=== PATIENT | female | born 1945 | race Caucasian/White ===

== ENCOUNTER → 2017-02-02 | Outpatient (CLI) | payer MEDICARE | END | disposition home or self-care (01) | LOC: GMAM 14:57 | PROVIDERS: ATTEND Family Medicine | DX: I10 Essential (primary) hypertension (principal); R79.9 Abnormal finding of blood chemistry, unspecified ==

== ENCOUNTER → 2017-08-17 | Outpatient (CLI) | payer MEDICARE | END | disposition home or self-care (01) | LOC: GMAM 14:14 | PROVIDERS: ATTEND Family Medicine | DX: N39.0 Urinary tract infection, site not specified (principal) ==

== ENCOUNTER 2017-12-19 10:48 | Emergency (ER) | payer MEDICARE ==
--- NOTE | 2017-12-19 12:30 | ED.PDOC ---
History of Present Illness - General Chief Complaint: Respiratory Problem Stated Complaint: Difficulty breathing since new medication initiate Time Seen by Provider: 12/19/17 12:24 Exam Limitations: no limitations Additional Information: Zane Key 72 y/o female stated that she had been having SOB since starting her new medication Cilastozal.She has history of COPD and on MDI. Denies chest pains. - History of Present Illness Timing/Duration: yesterday Cough Quality/Degree: dry cough, other - chronic-copd Possible Cause: occasional episodes Improving Factors: nothing Worsening Factors: nothing Associated Symptoms: denies symptoms Respiratory Risk Factors: other - smoking Allergies/Adverse Reactions: Allergies Codeine Adverse Reaction (Verified 12/19/17 11:13) Home Medications: Ambulatory Orders Amiodarone HCl 100 mg PO DAILY 12/19/17 Aspirin [Aspirin Adult Low Dose] 81 mg PO DAILY 12/19/17 Cilostazol 50 mg PO BID 12/19/17 Clopidogrel Bisulfate 75 mg PO DAILY 12/19/17 Lisinopril 20 mg PO DAILY 12/19/17 Tiotropium [place] Monohydrate [Spiriva Handihaler] 2 puff IN DAILY 12/19/17 Review of Systems - Review of Systems Constitutional: States: no symptoms reported EENTM: States: no symptoms reported Respiratory: States: see HPI Cardiology: States: no symptoms reported Gastrointestinal/Abdominal: States: no symptoms reported Genitourinary: States: no symptoms reported Musculoskeletal: States: no symptoms reported All other Systems: Reviewed and Negative, No Change from Baseline Past Medical History (General) - Patient Medical History Hx of COPD: Yes Hx Cardiac Disorders: Yes - a.fib Hx Hypertension: Yes Surgical History: appendectomy, other - - Social History Hx Tobacco Use: Yes Years Tobacco Use: 50 Cigarettes Packs Per Day: 20 Hx Physical Abuse: No Hx Emotional Abuse: No - Activities of Daily Living Patient Lives Alone: No Grooming Ability: Independent Eating (Feeding) Ability: Independent Toileting Ability: Independent Family Medical History - Family History Mother Hx Cardiac Disease: Yes - a.fib-multiple family members Grandparents Family History: Unknown Physical Exam - Physical Exam General Appearance: Alert, Comfortable, No apparent distress Eye Exam: bilateral normal ENT Exam: normal ENT inspection, hearing grossly normal Neck: non-tender, full range of motion, supple Respiratory: chest non-tender, no respiratory distress, decreased breath sounds Cardiovascular/Chest: normal peripheral pulses, no gallop, irregularly irregular Gastrointestinal/Abdominal: normal bowel sounds, non tender, soft, no organomegaly Extremity: normal range of motion, non-tender, no calf tenderness Neurologic: alert, oriented x 3 Skin Exam: normal color, warm/dry Lymphatic: no adenopathy Progress - Progress Progress: 12/19/17 14:28 Vital Signs - 8 hr 12/19/17 12:33 Temperature 97.4 F L Pulse Rate [R 88 Arm] Respiratory 18 Rate Blood Pressure 128/71 [R Arm] O2 Sat by Pulse 94 L Oximetry - EKG/XRAY/CT XRAY: chest - no acute abnormalities Departure - Departure Clinical Impression: SOB (shortness of breath) Time of Disposition: 14:29 Disposition: Discharge to Home or Self Care Condition: Fair Departure Forms: ED Discharge - Pt. Copy, Patient Portal Self Enrollment Referrals: Mani Hernadez MD [Primary Care Provider] - 1-2 Weeks Home Medications: Ambulatory Orders Amiodarone HCl 100 mg PO DAILY 12/19/17 Aspirin [Aspirin Adult Low Dose] 81 mg PO DAILY 12/19/17 Cilostazol 50 mg PO BID 12/19/17 Clopidogrel Bisulfate 75 mg PO DAILY 12/19/17 Lisinopril 20 mg PO DAILY 12/19/17 Tiotropium [place] Monohydrate [Spiriva Handihaler] 2 puff IN DAILY 12/19/17 Additional Instructions: DISCONTINUE CILOZTASOL;Call up your MD ;Return to emergency room as needed; Continue with rest of home medications
--- NOTE | 2017-12-19 14:25 | RAD ---
EXAM: Chest,1 View CLINICAL INDICATION: 72-year-old female with shortness of breath. TECHNIQUE: Single view, AP portable chest was obtained. COMPARISON: None. FINDINGS: Unremarkable cardiac and mediastinal silhouette. Heart size is normal. Tortuous atherosclerotic thoracic aorta. Lungs are clear without focal opacity, pneumothorax or pleural effusions. The visualized bones reveal diffuse demineralization and degenerative change. IMPRESSION: No acute cardiopulmonary abnormalities. Electronically signed by: Angeles Avalos MD 12/19/2017 2:24 PM [facility]
[2017-12-19 15:14] VITALS: BP 142/68; TEMP 97.8; O2SAT 94
== END 2017-12-19 14:30 | disposition home or self-care (01) ==
LOC: ER 10:48
DX: R06.02 Shortness of breath (principal); I48.91 Unspecified atrial fibrillation; I10 Essential (primary) hypertension; Z87.891 Personal history of nicotine dependence; J44.9 Chronic obstructive pulmonary disease, unspecified

== ENCOUNTER → 2018-02-18 | Outpatient (CLI) | payer MEDICARE | LOC: GMAM 16:30 | PROVIDERS: ATTEND Family Medicine | DX: D64.9 Anemia, unspecified (principal) ==

== ENCOUNTER → 2018-08-31 | Outpatient (CLI) | payer MEDICARE | LOC: GMAM 10:40 | PROVIDERS: ATTEND Family Medicine | DX: E03.9 Hypothyroidism, unspecified (principal) ==

== ENCOUNTER 2018-09-25 19:37 | Emergency (ER) | payer MEDICARE ==
[2018-09-25] MEDS ORDERED: VECURONIUM BROMIDE 10 MG VIAL IV ONE (19:38)
[2018-09-25] MEDS ORDERED: WATER FOR INJ 10 ML VIAL INJ ONE (19:38)
[2018-09-25] MEDS ORDERED: ETOMIDATE INJECTION 2 MG/ML 20ML VIAL IV ONE (19:38)
[2018-09-25] MEDS ORDERED: MIDAZOLAM INJ 5 MG/5 ML VIAL IV ONE ×3 (19:38→21:00)
[2018-09-25] MEDS ORDERED: SODIUM CHLORIDE 0.9% (FLUSH) 10 ML SYG IV PRN (19:52)
[2018-09-25] MEDS ORDERED: DOPamine PREMIX 250 ML IVPB ONE (20:05)
[2018-09-25] MEDS ORDERED: LEVALBUTEROL NEBS 1.25 MG/3 ML VIAL NEB ONE (20:09)
[2018-09-25 20:13] VITALS: O2SAT 94
[2018-09-25] MEDS ORDERED: SUCCINYLCHOLINE CHLORIDE 200 MG/10 ML VIAL ONE (20:23)
[2018-09-25] MEDS ORDERED: DOPamine PREMIX 400 MG in PREMIX BAG 1 BAG IVPB SCH (20:30)
[2018-09-25] MEDS ORDERED: SUCCINYLCHOLINE CHLORIDE 200 MG/10 ML VIAL IV ONE (20:30)
--- NOTE | 2018-09-25 20:50 | ED.PDOC ---
History of Present Illness - General Chief Complaint: Respiratory Problem Stated Complaint: shortness of breath, lethargic Time Seen by Provider: 09/25/18 19:57 Source: family Exam Limitations: clinical condition - SOB-unable to talk gasping for air - History of Present Illness Initial Comments: Zane Key 72 y/o female brought by family with worsening SOB for 2 1/2 days,no chest pains no cough.Has history of COPD,PAD,abdominal aortic aneurysm,and smoker for 50 years. Timing/Duration: other - see hpi Severity: severe Activities at Onset: none Possible Cause: other - copd Improving Factors: nothing Worsening Factors: other - see hpi Associated Symptoms: other - see hpi Allergies/Adverse Reactions: Allergies Codeine Adverse Reaction (Verified 12/19/17 11:13) Home Medications: Ambulatory Orders Aspirin [Aspirin Adult Low Dose] 81 mg PO DAILY 12/19/17 RX: Amiodarone HCl 100 mg PO DAILY 12/19/17 RX: Cilostazol 50 mg PO BID 12/19/17 RX: Clopidogrel Bisulfate 75 mg PO DAILY 12/19/17 RX: Lisinopril 20 mg PO DAILY 12/19/17 Tiotropium [place] Monohydrate [Spiriva Handihaler] 2 puff IN DAILY 12/19/17 Review of Systems - Review of Systems Respiratory: States: see HPI Unable to Obtain Due To: condition Past Medical History (General) - Patient Medical History Hx Stroke: Yes Hx of COPD: Yes Hx Cardiac Disorders: Yes - a.fib, aneurysm Hx Congestive Heart Failure: No Hx Hypertension: Yes Hx Diabetes: No Hx Cancer: No Hx Hepatitis C: No Surgical History: appendectomy, other - c-sections - Vaccination History Hx Tetanus, Diphtheria Vaccination: Yes Hx Influenza Vaccination: Yes - Social History Hx Tobacco Use: Yes Hx Chewing Tobacco Use: No Hx Alcohol Use: No Hx Substance Use: No Hx Substance Use Treatment: No Hx Depression: No Hx Physical Abuse: No Hx Emotional Abuse: No Hx Suspected Abuse: No - Female History Patient : No Family Medical History - Family History Mother Hx Cardiac Disease: Yes - a.fib-multiple family members Grandparents Family History: Unknown Physical Exam - Physical Exam General Appearance: Lethargic, Obvious distress, Ill Appearing Eyes, Ears, Nose, Throat Exam: normal ENT inspection, other - edentulous Neck: normal inspection Respiratory: respiratory distress, rales - both lungs Cardiovascular/Chest: tachycardia, other - no pulses felt Peripheral Pulses: dorsalis pedis,right: 0, dorsalis pedis,left: 0 Gastrointestinal/Abdominal: soft, no pulsatile mass Extremity: no pedal edema Skin Exam: cyanosis - circumoral, pallor Progress - Progress Progress: 09/25/18 21:10 Vital Signs - 8 hr 09/25/18 19:53 Temperature 95.6 F L Pulse Rate [ 80 brachial] Respiratory 32 H Rate Blood Pressure 0/0 [left] O2 Sat by Pulse 94 L Oximetry - EKG/XRAY/CT EKG: Sinus, Tachy, RBBB Comments: HR-118 XRAY: chest - right lung consolidation Procedures - Intubation Time of Intubation: 21:00 Intubation Method: orotracheal Tube Size (cm): 7.0 Medications: Succinylcholine Breath Sounds after Intubation: equal Intubation Complications: no complications Post Intubation Xray: Yes Departure - Departure Clinical Impression: Pneumonia Qualifiers: Pneumonia type: due to unspecified organism Laterality: right Lung location: upper lobe of lung Qualified Code(s): J18.1 - Lobar pneumonia, unspecified organism Respiratory failure, acute Qualifiers: Respiratory failure complication: unspecified whether with hypoxia or hypercapnia Qualified Code(s): J96.00 - Acute respiratory failure, unspecified whether with hypoxia or hypercapnia Time of Disposition: 21:16 Disposition: Transfer to Hospital Condition: Serious Departure Forms: ED Discharge - Pt. Copy, Patient Portal Self Enrollment Referrals: Mani Hernadez MD [Primary Care Provider] - 1-2 Weeks Home Medications: Ambulatory Orders Aspirin [Aspirin Adult Low Dose] 81 mg PO DAILY 12/19/17 RX: Amiodarone HCl 100 mg PO DAILY 12/19/17 RX: Cilostazol 50 mg PO BID 12/19/17 RX: Clopidogrel Bisulfate 75 mg PO DAILY 12/19/17 RX: Lisinopril 20 mg PO DAILY 12/19/17 Tiotropium [place] Monohydrate [Spiriva Handihaler] 2 puff IN DAILY 12/19/17 Transfer to Outside Facility - Transfer Information Accepting Provider:: D/W Dr. Evans Gamboa-SHANNAN Lyles Accepting Facility: [facility] Reason for Transfer: ICU
[2018-09-25] MEDS ORDERED: MIDAZOLAM INJ 5 MG/5 ML VIAL ONE (20:55)
[2018-09-25] MEDS ORDERED: levoFLOXacin 500MG IV 100 ML IVPB ONE (21:06)
--- NOTE | 2018-09-25 21:06 | RAD ---
EXAM DESCRIPTION: Chest,1 View CLINICAL HISTORY: 72 years Female dyspnea COMPARISON: 12/19/2017 FINDINGS: Lungs are hyperinflated. Heart size is stable. There is widening of the mediastinum. Endotracheal tube above the jae. There is increased density in the right superior hilar region, medial aspect of the right chest and along the inferolateral right upper lobe. Findings are most consistent with pneumonia. Recommend follow-up to document resolution and exclude underlying mass or abnormality. Prominent interstitial markings in the lung bases. IMPRESSION: Areas of probable consolidation in the right superior mediastinum right upper lobe medially and laterally concerning for pneumonia. Recommend follow-up to document resolution and exclude underlying mass Widened mediastinum which is in part due to the right upper lobe consolidation. Underlying adenopathy is not excluded Electronically signed by: Jessica Alvarez MD 09/25/2018 9:05 PM [facility]
[2018-09-25] MEDS ORDERED: levoFLOXacin 500MG IV 500 MG in PREMIX BAG 1 BAG IVPB ONE (21:07)
[2018-09-25] MEDS ORDERED: SODIUM CHLORIDE 0.9% 1000ML 1,000 ML ONE (21:08)
[2018-09-25] MEDS ORDERED: SODIUM CHLORIDE 0.9% 500ML 500 ML IVS ONE (21:08)
[2018-09-25] MEDS ORDERED: DEXTROSE 5% 250ML 250 ML ONE (21:17)
[2018-09-25] MEDS ORDERED: NOREPINEPHRINE BITARTRATE 4 MG/4 ML VIAL IVPB ONE (21:17)
[2018-09-25] MEDS ORDERED: NOREPINEPHRINE BITARTRATE 4 MG in DEXTROSE 5% 250ML 250 ML IVPB SCH (21:30)
[2018-09-26 02:29] VITALS: BP 63/41
[2018-09-26] MEDS ORDERED: VECURONIUM BROMIDE 10 MG VIAL IV ONE (02:35)
[2018-09-26 02:55] VITALS: TEMP 95
== END 2018-09-25 21:50 | disposition short-term general hospital (02) ==
LOC: ER 19:37
DX: J96.00 Acute respiratory failure, unspecified whether with hypoxia or hypercapnia (principal); J18.9 Pneumonia, unspecified organism; A41.9 Sepsis, unspecified organism; I95.89 Other hypotension; I45.10 Unspecified right bundle-branch block; R00.0 Tachycardia, unspecified; I48.91 Unspecified atrial fibrillation; J44.9 Chronic obstructive pulmonary disease, unspecified; I10 Essential (primary) hypertension; Z87.891 Personal history of nicotine dependence; Z79.82 Long term (current) use of aspirin; Z79.899 Other long term (current) drug therapy; Z88.5 Allergy status to narcotic agent
CPT/HCPCS: 71045; 80053; 82550; 82553; 83605; 83880; 84484; 85025; 85379; 85610; 85730; 93005; 94002; 94640; 94660; 94770; A4216; J0330; J1265; J1956; J2250; J7030; J7060; J7614